=== PATIENT | male | born 1975 | race Caucasian/White ===

== ENCOUNTER 2019-12-19 16:08 | Emergency (ER) | payer OTHER ==
[2019-12-19] MEDS ORDERED: predniSONE 20 MG Tab PO ONE (17:45)
[2019-12-19] MEDS ORDERED: Cephalexin 500 MG Cap PO ONE (17:46)
[2019-12-19] MEDS ORDERED: diphenhydrAMINE 25 MG Cap PO ONE (17:46)
--- NOTE | 2019-12-19 17:53 | EDM.PDOC ---
ED HPI GENERAL MEDICAL PROBLEM - General Chief Complaint: Skin Complaint Stated Complaint: REACTION Time Seen by Provider: 12/19/19 16:11 Source of Information: Reports: Patient History Limitations: Reports: No Limitations - History of Present Illness Onset: Gradual (two to three days ago) Duration: Getting Worse (started on back of hands and is now over most of his body including his head, chest and legs) rash Pain Score (Numeric/FACES): 7 - Related Data Allergies Allergy/AdvReac Type Severity Reaction Status Date / Time No Known Allergies Allergy Verified 12/19/19 16:20 Home Meds: Home Meds cephALEXin [Keflex] 500 mg PO Q8H 5 Days #15 cap 12/19/19 [Rx] diphenhydrAMINE [Benadryl] 25 mg PO BID PRN 5 Days #10 cap 12/19/19 [Rx] predniSONE [Prednisone] 10 mg PO ASDIRECTED 6 Days #12 tablet 12/19/19 [Rx] Past Medical History - Past Health History Medical/Surgical History: Denies Medical/Surgical History - Infectious Disease History Infectious Disease History: Reports: Chicken Pox - Past Surgical History Other Musculoskeletal Surgeries/Procedures:: right shoulder pain Social & Family History - Family History Family Medical History: Noncontributory - Tobacco Use Smoking Status *Q: Current Every Day Smoker Years of Tobacco use: 10 Packs/Tins Daily: 0.3 - Recreational Drug Use Recreational Drug Use: No ED ROS GENERAL - Review of Systems Review Of Systems: See Below Constitutional: Reports: No Symptoms HEENT: Reports: No Symptoms Respiratory: Reports: No Symptoms Cardiovascular: Reports: No Symptoms Endocrine: Reports: No Symptoms GI/Abdominal: Reports: No Symptoms : Reports: No Symptoms Musculoskeletal: Reports: No Symptoms Skin: Reports: Other (rash over most of body that started on the dorsal aspects of hands with severe itching over all of the rash area) Neurological: Reports: No Symptoms ED EXAM, SKIN/RASH Exam: See Below Exam Limited By: No Limitations General Appearance: Alert, WD/WN, No Apparent Distress Ears: Normal External Exam, Normal Canal, Hearing Grossly Normal, Normal TMs Nose: Normal Inspection, Normal Mucosa, No Blood Throat/Mouth: Normal Inspection, Normal Lips, Normal Teeth, Normal Gums, Normal Oropharynx, Normal Voice, No Airway Compromise, Other (no lesions ) Head: Atraumatic, Normocephalic, Other (raised lesions noted in the hair line) Neck: Normal Inspection, Supple, Non-Tender, Full Range of Motion, Other ( raised lesions noted over the anterior and posterior neck) Respiratory/Chest: No Respiratory Distress, Lungs Clear, Normal Breath Sounds, Chest Non-Tender, Other (raised lesions noted over the upper torso and lower torso) Cardiovascular: Normal Peripheral Pulses, Regular Rate, Rhythm, No Edema, No Gallop, No JVD, No Murmur, No Rub Peripheral Pulses: 3+: Carotid (L), Carotid (R), Radial (L), Radial (R), Dorsalis Pedis (L), Dorsalis Pedis (R) GI/Abdominal: Normal Bowel Sounds, Soft, Non-Tender, No Organomegaly, No Distention, No Abnormal Bruit, No Mass, Other (raised lesions noted over the abdomen that is similar to the lesions on the hand and the rest of the body) (Male) Exam: No Hernia, Normal Inspection, Normal Prostate, Circumcised Back Exam: Normal Inspection, Full Range of Motion, Other (lesions noted over both legs worse on the right with lesion that is weeping in the popliteal area) Extremities: Normal Inspection, Normal Range of Motion, Non-Tender, No Pedal Edema, Normal Capillary Refill Neurological: Alert, Oriented, CN II-XII Intact, Normal Cognition, Normal Gait, Normal Reflexes, No Motor/Sensory Deficits Psychiatric: Normal Affect, Normal Mood Skin: Warm, Dry, Other (rash as noted above which is consistent with atopic dermatitis) Characteristics: Macular, Papular, Erythematous Associated features: Weeping (behind right knee) Lymphatic: No Adenopathy Course - Vital Signs Text/Narrative:: He was examined. I feel that he has atopic dermatitis. I discussed this with the patient. He will be discharged. He agrees with the discharge plan. Last Recorded V/S: Last Vital Signs Temp 98.6 F 12/19/19 16:20 Pulse 98 12/19/19 16:20 Resp 20 12/19/19 16:20 BP 163/79 H 12/19/19 16:20 Pulse Ox 97 12/19/19 16:20 - Orders/Labs/Meds Meds: Medications Discontinued Medications Generic Name Dose Route Start Last Admin Trade Name Freq PRN Reason Stop Dose Admin Cephalexin 500 mg 12/19/19 17:46 12/19/19 17:58 Keflex PO 12/19/19 17:47 500 mg ONETIME ONE Administration Diphenhydramine HCl 25 mg 12/19/19 17:46 12/19/19 17:58 Benadryl PO 12/19/19 17:47 25 mg ONETIME ONE Administration Prednisone 40 mg 12/19/19 17:45 12/19/19 17:58 Prednisone PO 12/19/19 17:46 40 mg ONETIME ONE Administration Departure - Departure Time of Disposition: 18:10 Disposition: Home, Self-Care 01 Condition: Good Clinical Impression: Pruritic rash Atopic dermatitis Qualifiers: Atopic dermatitis type: other Qualified Code(s): L20.89 - Other atopic dermatitis; L20.8 - Other atopic dermatitis - Discharge Information *PRESCRIPTION DRUG MONITORING PROGRAM REVIEWED*: Yes *COPY OF PRESCRIPTION DRUG MONITORING REPORT IN PATIENT SUSANA: Yes Instructions: Atopic Dermatitis Referrals: PCP,None [Primary Care Provider] - Forms: ED Department Discharge, ED Return to Work/School Form Additional Instructions: Take all medications as directed. Follow up with a local hydraulic press servicer in the next two to three days. Cool baths or showers over the next two days to decrease the itching. Rest for the next 24 hours. Return to the ED if your condition gets worse or should you have any questions or concerns. The following information is given to patients seen in the emergency department who are being discharged to home. This information is to outline your options for follow-up care. We provide all patients seen in our emergency department with a follow-up referral. The need for follow-up, as well as the timing and circumstances, are variable depending upon the specifics of your emergency department visit. If you don't have a primary care physician on staff, we will provide you with a referral. We always advise you to contact your personal physician following an emergency department visit to inform them of the circumstance of the visit and for follow-up with them and/or the need for any referrals to a consulting specialist. The emergency department will also refer you to a specialist when appropriate. This referral assures that you have the opportunity for follow-up care with a specialist. All of these measure are taken in an effort to provide you with optimal care, which includes your follow-up. Under all circumstances we always encourage you to contact your private physician who remains a resource for coordinating your care. When calling for follow-up care, please make the office aware that this follow-up is from your recent emergency room visit. If for any reason you are refused follow-up, please contact the [facility] Emergency Department at and asked to speak to the emergency department charge nurse. Sepsis Event Note - Evaluation Sepsis Screening Result: No Definite Risk - Focused Exam Vital Signs: Vital Signs Temp Pulse Resp BP Pulse Ox 12/19/19 16:20 98.6 F 98 20 163/79 H 97 Date Exam was Performed: 12/19/19 Time Exam was Performed: 18:04
== END 2019-12-19 18:31 | disposition home or self-care (01) ==
LOC: MW.ED 16:08
DX: L20.89 Other atopic dermatitis (principal); F17.210 Nicotine dependence, cigarettes, uncomplicated
CPT/HCPCS: 99282; A9270